=== PATIENT | male | born 1980 | race Caucasian/White ===

== ENCOUNTER → 2017-10-30 | Emergency (ER) | payer BC ==
[2017-10-30 11:43] VITALS: BP 141/101
--- NOTE | 2017-10-30 12:28 | CPEKG ---
Heart Rate: 72 RR Interval: 833 P-R Interval: 136 QRSD Interval: 86 QT Interval: 392 QTC Interval: 430 P [place]: 7 QRS [place]: 50 T Wave [place]: 48 EKG Severity - NORMAL ECG - EKG Impression: SINUS RHYTHM Electronically Signed By: Ori Mcintyre 30-Oct-2017 12:38:52
--- NOTE | 2017-10-30 12:39 | EDPHY ---
H & P Time Seen by Provider: 10/30/17 12:36 HPI/ROS: CHIEF COMPLAINT: Right-sided chest pain HISTORY OF PRESENT ILLNESS: Had an incident 4 weeks ago which resolved about 2 days. 9 days ago he developed right shoulder pain like a knot and felt it was hard to breathe. Still now has pain just to the right of center which feels like a muscle cramp worse with lying down associated with a little bit of dyspnea. No cough or hemoptysis or leg swelling. Symptoms moderate. REVIEW OF SYSTEMS: Eye: no change in vision ENT: no sore throat Cardiac: no chest pain or syncope Pulmonary: HPI Abdomen: no vomiting, diarrhea, abdominal pain Musculoskeletal: No leg swelling Skin: no rash Neuro: no headache Constitutional: no fever : no urinary symptoms A comprehensive 10 point review of systems is otherwise negative aside from elements mentioned in the history of present illness. PAST MEDICAL HISTORY: Migraine headaches Social history: Nonsmoker, no cocaine. General Appearance: Alert and conversant, cooperative. Eyes: No scleral icterus. ENT, Mouth: Normal mucous membranes. Respiratory: Normal respiratory effort, breath sounds equal, lungs are clear to auscultation. Cardiovascular: Regular rate and rhythm. Gastrointestinal: Abdomen is soft and non tender. Neurological: Alert, face symmetric, normal motor and sensory in extremities. Skin: Warm and dry, no rashes. Musculoskeletal: No peripheral edema. No calf tenderness. Psychiatric: Not agitated. Emergency Department course/MDM: EKG normal. Plan for chest x-ray D-dimer and troponin. More likely to be muscular or inflammatory than pulmonary embolus. 1317: D-dimer negative, stable for discharge. Smoking Status: Never smoked Constitutional: Initial Vital Signs Temperature (C) 36.8 C 10/30/17 11:41 Heart Rate 70 10/30/17 11:41 Respiratory Rate 16 10/30/17 11:41 Blood Pressure 141/101 H 10/30/17 11:41 O2 Sat (%) 97 10/30/17 11:41 O2 Delivery Mode Room Air Allergies/Adverse Reactions: No Known Allergies Allergy (Unverified 10/30/17 11:43) Medical Decision Making - Diagnostics EKG Interpretation: 12-lead EKG interpreted by me; official reading is in trace master. My interpretation is sinus rhythm rate 72 no ischemic changes. Imaging Results: Imaging Impressions Chest X-Ray 10/30/17 12:34 Impression: Normal chest x-ray. Chest x-ray personally interpreted is negative. Differential Diagnosis: Differential diagnosis considered for chest pain including but not limited to myocardial ischemia, aortic dissection, pericarditis, pulmonary embolus, chest wall pain, pleural inflammation and pulmonary infectious causes. - Data Points Laboratory Results: Laboratory Results 10/30/17 12:21 10/30/17 12:21 10/30/17 10/30/17 10/30/17 12:35 12:21 12:21 WBC RBC Hgb Hct MCV MCH MCHC RDW Plt Count MPV Neut % (Auto) Lymph % (Auto) [place] % (Auto) Eos % (Auto) Baso % (Auto) Nucleat RBC Rel Count Absolute Neuts (auto) Absolute Lymphs (auto) Absolute Monos (auto) Absolute Eos (auto) Absolute Basos (auto) Absolute Nucleated RBC Immature Gran % Immature Gran # D-Dimer < 0.27 ug/mLFEU ug/mLFEU (0.00-0.50) Sodium 144 mEq/L mEq/L (135-145) Potassium 4.1 mEq/L mEq/L (3.3-5.0) Chloride 103 mEq/L mEq/L (97-110) Carbon Dioxide 28 mEq/l mEq/l (22-31) Anion Gap 13 mEq/L mEq/L (8-16) BUN 13 mg/dL mg/dL (7-23) Creatinine 0.8 mg/dL mg/dL (0.7-1.3) Estimated GFR > 60 Glucose 95 mg/dL mg/dL (70-100) Calcium 9.6 mg/dL mg/dL (8.5-10.4) POC Troponin I 0.00 ng/mL ng/mL (0.00-0.08) 10/30/17 12:21 WBC 5.68 10^3/uL 10^3/uL (3.80-9.50) RBC 5.15 10^6/uL 10^6/uL (4.40-6.38) Hgb 15.1 g/dL g/dL (13.7-17.5) Hct 43.7 % % (40.0-51.0) MCV 84.9 fL fL (81.5-99.8) MCH 29.3 pg pg (27.9-34.1) MCHC 34.6 g/dL g/dL (32.4-36.7) RDW 12.2 % % (11.5-15.2) Plt Count 292 10^3/uL 10^3/uL (150-400) MPV 9.2 fL fL (8.7-11.7) Neut % (Auto) 54.8 % % (39.3-74.2) Lymph % (Auto) 34.0 % % (15.0-45.0) [place] % (Auto) 5.5 % % (4.5-13.0) Eos % (Auto) 4.6 % % (0.6-7.6) Baso % (Auto) 0.9 % % (0.3-1.7) Nucleat RBC Rel Count 0.0 % % (0.0-0.2) Absolute Neuts (auto) 3.12 10^3/uL 10^3/uL (1.70-6.50) Absolute Lymphs (auto) 1.93 10^3/uL 10^3/uL (1.00-3.00) Absolute Monos (auto) 0.31 10^3/uL 10^3/uL (0.30-0.80) Absolute Eos (auto) 0.26 10^3/uL 10^3/uL (0.03-0.40) Absolute Basos (auto) 0.05 10^3/uL 10^3/uL (0.02-0.10) Absolute Nucleated RBC 0.00 10^3/uL 10^3/uL (0-0.01) Immature Gran % 0.2 % % (0.0-1.1) Immature Gran # 0.01 10^3/uL 10^3/uL (0.00-0.10) D-Dimer Sodium Potassium Chloride Carbon Dioxide Anion Gap BUN Creatinine Estimated GFR Glucose Calcium POC Troponin I Point of Care Test Results: Chemistry 10/30/17 12:35 POC Troponin I 0.00 ng/mL ng/mL (0.00-0.08) Departure - Departure Disposition: Home, Routine, Self-Care Clinical Impression: Chest pain Qualifiers: Chest pain type: unspecified Qualified Code(s): R07.9 - Chest pain, unspecified Condition: Good Instructions: Chest Pain (ED) Referrals: VALERIE GRAYSON [Other] - As per Instructions
[2017-10-30 12:46] LABS: PLATELET COUNT 292 10^3/uL (150-400)
== END | disposition home or self-care (01) ==
DX: R07.9 Chest pain, unspecified (principal)
CPT/HCPCS: 84484-PO